=== PATIENT | male | born 1935 | race Caucasian/White ===

== ENCOUNTER 2018-08-02 16:21 | Emergency (ER) | payer MEDICARE ==
[~2018-08-02] VITALS: Ht 180.3 cm; Wt 71.7 kg
[~2018-08-02 16:21] MED LIST: BISA10SU55 RC; CYAN10005 PEG; DOCU100C28 PEG; DROX100C PEG; FLUT1DIS IH; LEVO75TA5 PEG; LIOT5TAB PEG; MAGN400O7 PEG; MELA3TAB2 PEG; MIDO10TA PEG; MODA100T2 PEG; NA P133E2 RC; PHEN177S54 MM; PIMA17TA PEG; UNABLE MC; VENL37.56 PO; XOPENEX HFA15 GM IH
[2018-08-02] MEDS ORDERED: LIDOCAINE 1% PF 2 ML VIAL. INJ ONE (16:30)
--- NOTE | 2018-08-02 16:33 | PHYS DOC ---
Past Medical History Past Medical History: Other Additional Past Medical Histor: SYNCOPY & CALLAPSE. DYSPHAGIA, HYPOTHYROIDIS, DEPPRESSION Past Surgical History: Other Additional Past Surgical Histo: UNKNOWN Alcohol Use: None Drug Use: None Adult General HPI HPI Patient is a 83 year old M who is brought to ER by EMS after falling face forward out of his wheelchair just prior to EMS call. Per report from longterm, they aren't sure what caused the fall. It was unwitnessed so they are not sure about LOC. They are reporting that his mentation is at baseline. Pt has a laceration above his R eye and is in C-Collar on arrival. Review of Systems Review of Systems Difficult to get history but denies any pain. Constitutional: Denies fever or chills Respiratory: Denies cough or shortness of breath Cardiovascular: Denies chest or rib pain GI: Denies abdominal pain, nausea, vomiting, bloody stools or diarrhea Musculoskeletal: Denies back pain or joint pain Integument: Denies rash or skin lesions. Pt has laceration to R upper face. Neurologic: Denies headache, focal weakness or sensory changes All other systems were reviewed and found to be within normal limits, except as documented in this note. Current Medications Current Medications Current Medications Medications (Trade) Dose Ordered Sig/Casandra Start Time Stop Time Status Last Admin Dose Admin Lidocaine HCl (Xylocaine-Mpf 1% 2ml Vial) 2 ml 1X ONCE 08/02/18 16:30 08/02/18 16:31 DC 08/02/18 16:58 2 ML Allergies Allergies Allergies Coded Allergies Type Severity Reaction Last Updated Verified cefazolin Allergy Intermediate 06/29/17 Yes levofloxacin Allergy Intermediate 06/29/17 Yes pramipexole Allergy Intermediate 06/29/17 Yes Physical Exam Physical Exam Constitutional: Well developed, well nourished, no acute distress, non-toxic appearance. Pt arrives with C-collar in place. HENT: Pt has laceration above R eye. No blood seen in nares, R orbit sore to palpation. Eyes: PERRLA, EOMI, conjunctiva normal, no discharge. Neck: C-collar in place Cardiovascular:Heart rate regular rhythm, no murmur Lungs & Thorax: Bilateral breath sounds clear to auscultation Abdomen: Bowel sounds normal, soft, no tenderness, no masses, no pulsatile masses. Skin: 3cm laceration above R eye Back: No tenderness, no CVA tenderness. Extremities: No tenderness, no cyanosis, no clubbing, ROM intact, no edema. Neurologic: Alert, answers questions appropriately. Holding eyes shut but opens them when asked. Current Patient Data Vital Signs Vital Signs Date Time Temp Pulse Resp B/P (MAP) Pulse Ox O2 Delivery O2 Flow Rate FiO2 08/02/18 16:21 98.1 73 17 153/72 (99) 94 Room Air 98.1 EKG EKG [] Radiology/Procedures Radiology/Procedures CT head, neck and face neg for acute fracture or bleed. The CT's head and face did mention both sinusitis and otitis media. Course & Med Decision Making Course & Med Decision Making Pertinent Labs and Imaging studies reviewed. (See chart for details) Pt's head CT mentioned sinusitis and otitis media. Ears examined and difficult to visualize due to wax but will cover with Amoxil due to possible sinusitis and pt unable to tell me much about his symptoms due to baseline medical condition. Pt's laceration closed with absorbable suture. He is on Xeralto and will need to be monitored closely due to head injury. Ccollar removed and neck palpated and he denies pain. Pt will be transferred back to his longterm. Dragon Disclaimer Dragon Disclaimer This electronic medical record was generated, in whole or in part, using a voice recognition dictation system. Departure Departure Impression: Primary Impression: Facial laceration Additional Impressions: Head injury Sinusitis Disposition: 01 HOME, SELF-CARE Condition: IMPROVED Referrals: NO PCP (PCP) Patient Instructions: Facial Laceration, [id number], Head Injury, Adult, Easy -to-Read, Sinusitis, [id number] Additional Instructions: CT studies were done today of face, neck and head. There is no sign of internal head injury at this time and no acute facial or neck fracture. On CT the radiologist mentioned that the sinuses are inflamed and the R ear is inflamed concerning for sinus and ear infection. We will cover with some antibiotics for this finding. Since pt is on a blood thinner, he needs to be watched very carefully for any change in his head injury condition. The stitches placed are dissolvable and do not need to be removed. Close recheck with primary care doctor recommended. Scripts Amoxicillin (AMOXICILLIN) 500 Mg Capsule 1 CAP PO TID, #30 CAP Prov: SKOUSE-VOLL,JENN D THOR 08/02/18 Suture/Staple Procedure HPI Patient is a 83 year old [f__sex] who presents with [] Review of Systems Constitutional: Denies fever or chills. [] Musculoskeletal: Denies pain. Denies distal numbness or tingling. [] Integument: Denies rash. [] Neurologic: Denies headache, focal weakness or sensory changes. [] See HPI for further details. Review of systems otherwise negative. Current Medications Current Medications Medications (Trade) Dose Ordered Sig/Casandra Start Time Stop Time Status Last Admin Dose Admin Lidocaine HCl (Xylocaine-Mpf 1% 2ml Vial) 2 ml 1X ONCE 08/02/18 16:30 08/02/18 16:31 DC 08/02/18 16:58 2 ML Allergies Allergies Coded Allergies Type Severity Reaction Last Updated Verified cefazolin Allergy Intermediate 06/29/17 Yes levofloxacin Allergy Intermediate 06/29/17 Yes pramipexole Allergy Intermediate 06/29/17 Yes Physical Exam Constitutional: Well developed, well nourished, no acute distress, non-toxic appearance. [] HEENT: Normocephalic, atraumatic [] Neck: Normal range of motion [] Skin: Warm, dry, no erythema, no rash. [] Extremities: Intact distal pulses, no tenderness, full range of motion [] Neurologic: Alert and oriented X 3, no focal deficits noted. [] Psychologic: Affect normal, judgement normal, mood normal. [] Suture Removal Procedure [] removed from wound. The wound was well approximated before and after procedure. Patient tolerated the procedure well. There is some crusting about the wound and no discharge from the wound. Current Patient Data Vital Signs Date Time Temp Pulse Resp B/P (MAP) Pulse Ox O2 Delivery O2 Flow Rate FiO2 08/02/18 16:21 98.1 73 17 153/72 (99) 94 Room Air 98.1 Vital Signs Date Time Temp Pulse Resp B/P (MAP) Pulse Ox O2 Delivery O2 Flow Rate FiO2 08/02/18 16:21 98.1 73 17 153/72 (99) 94 Room Air 98.1 Radiology/Procedures [] Course & Medical Decisions Pertinent Labs and Imaging studies reviewed. (See chart for details) [] Final Impression [] Suture/Staple Procedure HPI Patient is a 83 year old [f__sex] who presents with [] Review of Systems Constitutional: Denies fever or chills. [] Musculoskeletal: Denies pain. Denies distal numbness or tingling. [] Integument: Denies rash. [] Neurologic: Denies headache, focal weakness or sensory changes. [] See HPI for further details. Review of systems otherwise negative. Current Medications Current Medications Medications (Trade) Dose Ordered Sig/Casandra Start Time Stop Time Status Last Admin Dose Admin Lidocaine HCl (Xylocaine-Mpf 1% 2ml Vial) 2 ml 1X ONCE 08/02/18 16:30 08/02/18 16:31 DC 08/02/18 16:58 2 ML Allergies Allergies Coded Allergies Type Severity Reaction Last Updated Verified cefazolin Allergy Intermediate 06/29/17 Yes levofloxacin Allergy Intermediate 06/29/17 Yes pramipexole Allergy Intermediate 06/29/17 Yes Physical Exam Constitutional: Well developed, well nourished, no acute distress, non-toxic appearance. [] HEENT: Normocephalic, atraumatic [] Neck: Normal range of motion [] Skin: Warm, dry, no erythema, no rash. [] Extremities: Intact distal pulses, no tenderness, full range of motion [] Neurologic: Alert and oriented X 3, no focal deficits noted. [] Psychologic: Affect normal, judgement normal, mood normal. [] Suture Removal Procedure Wound was anesthetized with 2cc of 1% lidocaine. Laceration is 3cm long. Wound was then cleansed with Hibiclens and irrigated with saline. Wound was closed with 3 sutures of 5-0 vicryl and hemostasis was achieved. Wound edges approximated well and pt tolerated procedure without complications. Bandage applied. Current Patient Data Vital Signs Date Time Temp Pulse Resp B/P (MAP) Pulse Ox O2 Delivery O2 Flow Rate FiO2 08/02/18 16:21 98.1 73 17 153/72 (99) 94 Room Air 98.1 Vital Signs Date Time Temp Pulse Resp B/P (MAP) Pulse Ox O2 Delivery O2 Flow Rate FiO2 08/02/18 16:21 98.1 73 17 153/72 (99) 94 Room Air 98.1 Radiology/Procedures [] Course & Medical Decisions Pertinent Labs and Imaging studies reviewed. (See chart for details) [] Final Impression [] Problem Qualifiers SKOUSE-VOLL,JENN D PA Aug 02, 2018 16:33
--- NOTE | 2018-08-02 17:06 | RAD ---
CT of the head without contrast, 08/02/2018: HISTORY: Fall, forehead laceration There is moderate cerebral and cerebellar atrophy. There are moderate patchy lucencies in the deep white matter bilaterally compatible with chronic ischemic change. The ventricles are mildly enlarged on a compensatory basis. There is no shift of the midline structures. There is no evidence of acute intracranial hemorrhage or mass effect. A small bubble of gas in the soft tissues in the right frontal region are compatible with a laceration. No underlying fracture is identified. There is mild mucosal thickening in the right maxillary and both ethmoid sinuses. The right mastoid air cells are opacified, presumably on an inflammatory basis. IMPRESSION: 1. Cerebral and cerebellar atrophy. 2. Moderate bilateral deep white matter lucencies compatible with chronic ischemic change. 3. Right mastoiditis and mild paranasal sinusitis. 4. No acute intracranial abnormality is detected. CT of the facial bones without contrast, 08/02/2018: Noncontrast scans were obtained with multiplanar reconstructions produced. No facial bone fracture is identified. No free fluid is present in the paranasal sinuses. Mucosal thickening is noted in the right maxillary and both ethmoid sinuses. The orbital contents are unremarkable. IMPRESSION: No acute facial bone abnormality is detected. Electronically signed by: Luiz Mcgraw MD (08/02/2018 5:03 PM) [facility]
--- NOTE | 2018-08-02 17:13 | RAD ---
CT study of the cervical spine without contrast Clinical indications: Fell from wheelchair. Forehead laceration. TECHNIQUE: Noncontrast helical CT scanning of the cervical spine was performed. Multiplanar 2-D reconstructions were generated. PQRS compliance Statement One or more of the following individualized dose reduction techniques were utilized for this study: 1. Automated exposure control 2. Adjustment of the mA and/or kV according to patient size 3. Use of iterative reconstruction technique COMPARISON: None available. FINDINGS: No acute fracture or discitis or lytic process is evident. Grade 1 anterolisthesis of C3-4 and C4-5 is seen. This is secondary to degenerative facet arthropathy. Degenerative facet arthropathy is seen throughout the cervical spine. No perching of facet joints is evident. There is severe degenerative disc space narrowing and prominent degenerative endplate spurring at C5-6 and C6-7 and C7-T1. There is opacification of the right middle ear cavity and right mastoid sinus. The left mastoid sinus and middle ear cavity are clear. There is cerumen within the external auditory canals bilaterally. IMPRESSION: No acute fracture. Degenerative cervical spondylosis. Right mastoiditis and right otitis media. Electronically signed by: Yash Handley MD (08/02/2018 5:10 PM) [id number]
[2018-08-02] MEDS ORDERED: AMOX500C PO (17:23)
[2018-08-02 18:00] VITALS: BP 166/87
== END 2018-08-02 19:21 | disposition home or self-care (01) ==
LOC: ER 16:21
DX: S01.81XA Laceration without foreign body of other part of head, initial encounter (principal); S09.8XXA Other specified injuries of head, initial encounter; J32.9 Chronic sinusitis, unspecified; H70.91 Unspecified mastoiditis, right ear; H66.91 Otitis media, unspecified, right ear; Z88.1 Allergy status to other antibiotic agents; Z88.8 Allergy status to other drugs, medicaments and biological substances; W05.0XXA Fall from non-moving wheelchair, initial encounter; Y93.89 Activity, other specified; Y92.89 Other specified places as the place of occurrence of the external cause; Y99.8 Other external cause status
CPT/HCPCS: 12013; 70450; 70486; 72125; 99284-25